=== PATIENT | female | born 1960 | race Caucasian/White ===

== ENCOUNTER 2024-11-09 18:53 | Inpatient (IN) | payer MEDICARE, MEDICAID ==
[~2024-11-09] VITALS: Ht 160 cm; Wt 69.1 kg
[~2024-11-09 18:53] MED LIST: ALBU8.5H8 IH; BUDE10.22 IH; FLUC100T68 PO; FLUT16SP NASAL; MONT-35 PO; OMEP-148 PO
[2024-11-09 20:29] LABS: BASOPHILS % (AUTO) 0.9 % (0.0-2.0); EOSINOPHILS % (AUTO) 0.4 % (1.0-6.0); HEMATOCRIT 40.2 % (36-46); HEMOGLOBIN 13.6 g/dL (12.0-16.0); LYMPHOCYTES # (AUTO) 0.7 K/uL (1.0-4.8); LYMPHOCYTES % (AUTO) 11.4 % (22.0-44.0); MEAN CORPUSCULAR HEMOGLOBIN 29.7 pg (26.0-34.0); MEAN CORPUSCULAR HGB CONC 33.8 G/dL (31.0-37.0); MEAN CORPUSCULAR VOLUME 88 fL (80-100); MONOCYTES # (AUTO) 0.5 K/uL (0.1-1.0); MONOCYTES % (AUTO) 8.9 % (2.0-9.0); NEUTROPHILS # (AUTO) 4.5 K/uL (1.8-7.7); NEUTROPHILS % (AUTO) 78.4 % (40.0-70.0); PLATELET COUNT (AUTO) 172 K/uL (150-450); RED BLOOD CELL COUNT(AUTO) 4.57 MIL/uL (4.00-5.20); RED CELL DISTRIBUTION WIDTH 13.4 % (11.5-14.5); WHITE BLOOD COUNT (AUTO) 5.7 K/uL (4.5-11.0)
[2024-11-09 20:36] LABS: CREATININE 1.06 mg/dL (0.60-1.30); POTASSIUM 3.5 mmol/L (3.5-5.1)
[2024-11-09 20:58] LABS: COVID AG,FIA SOURCE NASAL SWAB
[2024-11-09] MEDS: DiphenhydrAMINE HCL 50 MG/ML VIAL IM ONE (21:12)
[2024-11-09] MEDS: LORazepam 2 MG/ML VIAL IM ONE (21:12)
[2024-11-09] MEDS: haloperidoL LACTATE 5 MG/ML VIAL IM ONE (21:13)
[2024-11-09 21:15] LABS: SARS-COV2 (COVID) ANTIGEN,FIA Negative (Negative)
[2024-11-09] MEDS ORDERED: ZOLPIDEM TARTRATE 10 MG TABLET PO PRN (23:15)
[2024-11-09] MEDS ORDERED: LORazepam 2 MG TABLET PO PRN (23:15)
[2024-11-09] MEDS ORDERED: haloperidoL 5 MG TABLET PO PRN (23:15)
[2024-11-10 01:48] VITALS: BP 111/83; PULSE 78; RESP 18; TEMP 97.1; O2SAT 98
[2024-11-10 10:48] VITALS: BP 114/61; PULSE 74; RESP 18; TEMP 97.6; O2SAT 100
[2024-11-10 20:00] VITALS: BP 105/70; PULSE 65; RESP 18; TEMP 96.9; O2SAT 99
[2024-11-11 11:50] VITALS: BP 120/83; PULSE 69; RESP 18; TEMP 97.6; O2SAT 98
[2024-11-11] MEDS: QUEtiapine FUMARATE 25 MG TABLET PO SCH (16:14)
[2024-11-11 20:16] VITALS: RESP 18
[2024-11-12 09:24] VITALS: BP 121/82; PULSE 68; RESP 18; TEMP 97.3; O2SAT 99
[2024-11-12 21:08] VITALS: BP 137/70; PULSE 70; RESP 18; TEMP 97.2; O2SAT 100
[2024-11-13 08:41] VITALS: BP 149/84; PULSE 70; RESP 19; TEMP 96.9; O2SAT 97
[2024-11-13 17:46] LABS: APPEARANCE,URINE CLEAR (CLEAR); BILIRUBIN,URINE NEGATIVE (NEGATIVE); COLOR,URINE LIGHT YELLOW (YELLOW); GLUCOSE, URINE (UA) NEGATIVE (NEGATIVE); KETONES,URINE NEGATIVE (NEGATIVE); LEUKOCYTE ESTERASE ,URINE TRACE (NEGATIVE); NITRATE,URINE NEGATIVE (NEGATIVE); OCCULT BLOOD,URINE TRACE (NEGATIVE); PH,URINE 5.5 (5.0-8.0); PH,URINE DRUG SCREEN 5.5 (5.0-8.0); PROTEIN,URINE NEGATIVE (NEGATIVE); SPECIFIC GRAVITIY, URINE 1.009 (1.003-1.030); UROBILINOGEN,URINE <=1.0 mg/dL (<=1.0)
[2024-11-13 17:54] LABS: AMPHET/METH SCREEN,URINE NEGATIVE (NEGATIVE); BARBITURATE SCREEN, URINE NEGATIVE (NEGATIVE); BENZODIAZEPINES SCREEN,URINE NEGATIVE (NEGATIVE); CANNABINOID SCREEN,URINE NEGATIVE (NEGATIVE); COCAINE SCREEN,URINE NEGATIVE (NEGATIVE); METHADONE SCREEN, URINE NEGATIVE (NEGATIVE); OPIATE SCREEN,URINE NEGATIVE (NEGATIVE); PHENCYCLIDINE SCREEN,URINE NEGATIVE (NEGATIVE)
[2024-11-13 17:55] LABS: BACTERIA,URINE Rare /HPF (None Seen); SQUAMOUS EPITHELIAL CELL,UR Few /LPF (None Seen)
[2024-11-13 17:57] LABS: ALCOHOL, URINE DRUG SCREEN NEGATIVE (NEGATIVE)
[2024-11-13 22:19] VITALS: BP 115/89; PULSE 71; RESP 17; TEMP 97.5; O2SAT 97
[2024-11-14 10:28] VITALS: BP 112/99; PULSE 63; RESP 18; TEMP 97.7; O2SAT 98
[2024-11-14] MEDS ORDERED: CloNIDine HCL 0.1 MG TABLET PO PRN (21:00)
[2024-11-14] MEDS ORDERED: MAGNESIUM HYDROXIDE SUSPENSION 30 ML UDCUP PO PRN (21:00)
[2024-11-14] MEDS ORDERED: NICOTINE 14 MG/24 HOUR PATCH TD PRN (21:00)
[2024-11-14] MEDS ORDERED: GuaiFENesin/D-METHORPHAN [SUGAR-FREE] 200-20MG/10 ML SYRUP UDCUP PO PRN (21:00)
[2024-11-14] MEDS ORDERED: IBUPROFEN 400 MG TABLET PO PRN (21:00)
[2024-11-14] MEDS ORDERED: MAG HYDROX/ALUMINUM HYD/SIMETH ES 30 ML SUSPENSION UDCUP PO PRN (21:00)
[2024-11-14] MEDS ORDERED: ACETAMINOPHEN 325 MG TABLET PO PRN (21:00)
[2024-11-14] MEDS ORDERED: PETROLATUM,WHITE 28 GM JELLY TP PRN (21:00)
[2024-11-14] MEDS ORDERED: ALBUTEROL SULFATE HFA 90 MCG/PUFF 8 GM INHALER IH PRN ×2 (21:00)
[2024-11-14] MEDS ORDERED: ONDANSETRON 4 MG TABLET PO PRN (21:00)
[2024-11-14] MEDS ORDERED: LOPERAMIDE HCL 2 MG CAPSULE PO PRN (21:00)
[2024-11-14] MEDS ORDERED: DOCUSATE SODIUM 100 MG CAPSULE PO PRN (21:00)
[2024-11-14 22:15] VITALS: BP 120/67; PULSE 73; RESP 18; TEMP 96.7; O2SAT 100
[2024-11-15 07:33] LABS: BASOPHILS % (AUTO) 1.9 % (0.0-2.0); EOSINOPHILS % (AUTO) 2.3 % (1.0-6.0); HEMATOCRIT 38.8 % (36-46); LYMPHOCYTES # (AUTO) 1.4 K/uL (1.0-4.8); LYMPHOCYTES % (AUTO) 30.7 % (22.0-44.0); MEAN CORPUSCULAR HEMOGLOBIN 29.9 pg (26.0-34.0); MEAN CORPUSCULAR HGB CONC 33.6 G/dL (31.0-37.0); MEAN CORPUSCULAR VOLUME 89 fL (80-100); MONOCYTES # (AUTO) 0.5 K/uL (0.1-1.0); MONOCYTES % (AUTO) 11.3 % (2.0-9.0); NEUTROPHILS # (AUTO) 2.5 K/uL (1.8-7.7); NEUTROPHILS % (AUTO) 53.8 % (40.0-70.0); PLATELET COUNT (AUTO) 209 K/uL (150-450); RED BLOOD CELL COUNT(AUTO) 4.36 MIL/uL (4.00-5.20); RED CELL DISTRIBUTION WIDTH 13.8 % (11.5-14.5); WHITE BLOOD COUNT (AUTO) 4.6 K/uL (4.5-11.0)
[2024-11-15 08:09] LABS: HEMOGLOBIN A1C 5.4 % (3.8-5.6)
[2024-11-15 08:23] LABS: ALANINE AMINOTRANSFERASE 26 U/L (12-78); ALBUMIN 3.2 g/dL (3.4-5.0); ALKALINE PHOSPHATASE 70 U/L (46-116); ANION GAP 8 mmol/L (8-16); ASPARTATE AMINOTRANSFERASE 25 U/L (15-37); BILIRUBIN,TOTAL 0.3 mg/dL (0.1-1.0); CALCIUM, TOTAL 8.6 mg/dL (8.8-10.5); CARBON DIOXIDE 28 mmol/L (22-29); CHLORIDE 100 mmol/L (98-107); CREATININE 0.69 mg/dL (0.60-1.30); GLOMERULAR FILTR. RATE CALC > 60 mL/min (>60); GLUCOSE,RANDOM 95 mg/dL (70-110); POTASSIUM 3.9 mmol/L (3.5-5.1); SODIUM SERUM 136 mmol/L (136-145); THYROID STIMULATING HORMONE 9.24 uIU/mL (0.36-3.74); TOTAL PROTEIN, SERUM 6.7 g/dL (6.4-8.2); UREA NITROGEN, BLOOD 20 mg/dL (7-18)
[2024-11-15] MEDS: FLUCONAZOLE 100 MG TABLET PO SCH (09:00)
[2024-11-15] MEDS: MONTELUKAST SODIUM 10 MG TABLET PO SCH (09:00)
[2024-11-15] MEDS: OMEPRAZOLE 20 MG CAPSULE PO SCH (09:00)
[2024-11-15] MEDS: BUDESONIDE/FORMOTEROL FUMARATE 80-4.5 MCG/PUFF 10.2 GM INHALER IH SCH (09:00)
[2024-11-15] MEDS: FLUTICASONE PROPIONATE 50 MCG/SPRAY 16 GM NASAL SPRAY NASAL SCH (09:00)
[2024-11-15 10:16] VITALS: BP 124/74; PULSE 67; RESP 18; TEMP 97.5; O2SAT 100
[2024-11-15 12:17] LABS: CHOL/HDL RATIO 4.4 (3.9-5.7)
[2024-11-15 21:38] VITALS: BP 118/67; PULSE 89; RESP 18; TEMP 98.2; O2SAT 100
[2024-11-16 08:35] VITALS: BP 128/84; PULSE 75; RESP 18; TEMP 97; O2SAT 99
[2024-11-16 22:38] VITALS: BP 111/74; PULSE 90; RESP 18; TEMP 98.2; O2SAT 98
[2024-11-17 08:00] VITALS: BP 129/81; PULSE 74; RESP 17; TEMP 98; O2SAT 98
[2024-11-17 21:55] VITALS: BP 112/68; PULSE 58; RESP 17; TEMP 98.2; O2SAT 100
[2024-11-18 10:56] VITALS: BP 109/73; PULSE 80; RESP 18; TEMP 97.8; O2SAT 97
[2024-11-18 22:05] VITALS: BP 117/73; PULSE 91; RESP 18; TEMP 97.3
[2024-11-19 13:31] VITALS: BP 110/66; PULSE 84; RESP 18; TEMP 97.4
[2024-11-19] MEDS ORDERED: QUET25TA PO (13:51)
== END 2024-11-19 17:41 | disposition home or self-care (01) | DRG 885 ==
LOC: EMS 18:53 → 3EX 11-10 00:48
PROVIDERS: ADMIT Psychiatry & Neurology Child & Adolescent Psychiatry; ATTEND Psychiatry & Neurology Child & Adolescent Psychiatry
PROC: GZHZZZZ Group Psychotherapy (ICD-10-PCS; principal; 2024-11-10)
PROC: GZ52ZZZ Individual Psychotherapy, Cognitive (ICD-10-PCS; 2024-11-10)
PROC: GZ56ZZZ Individual Psychotherapy, Supportive (ICD-10-PCS; 2024-11-10)
DX: F29 Unspecified psychosis not due to a substance or known physiological condition (principal); E78.5 Hyperlipidemia, unspecified; F22 Delusional disorders; J45.909 Unspecified asthma, uncomplicated; I10 Essential (primary) hypertension; K21.9 Gastro-esophageal reflux disease without esophagitis; F41.9 Anxiety disorder, unspecified; R73.9 Hyperglycemia, unspecified; Z20.822 Contact with and (suspected) exposure to COVID-19
CPT/HCPCS: 80048; 80053; 80061; 80307; 81001; 83036; 84443; 85025; 99285; G0378; G0480; J1200; J1630; J2060; 36415-L1; 36415-TC; Z7502; Z7610